=== PATIENT | female | born 1935 | race Caucasian/White ===

== ENCOUNTER 2024-01-15 21:23 | Emergency (ER) | payer MEDICARE, SELFPAY ==
[2024-01-15 21:33] VITALS: BP 149/97; PULSE 82; O2SAT 99
--- NOTE | 2024-01-15 21:33 | DI.RAD.S_ITS ---
PROCEDURE: XR SHOULDER LT MIN 2V INDICATIONS: fall from standing, shoulder pain TECHNIQUE: 3 views of the shoulder were acquired. COMPARISON: [facility], CT, CT CHEST WO CON, 01/15/2024, 21:47. FINDINGS: Bones: No fractures or dislocations. No suspicious bony lesions. Visualized ribs appear intact. Severe degenerative changes at the left glenohumeral joint. Soft tissues: No suspicious soft tissue calcifications. IMPRESSION: No acute bony abnormality. Severe degenerative changes at the left glenohumeral joint. Dictated by: Otcavio Kolb M.D. on 01/15/2024 at 22:16 Approved by: Octavio Kolb M.D. on 01/15/2024 at 22:19
--- NOTE | 2024-01-15 21:33 | DI.CT.S_ITS ---
PROCEDURE: CT CHEST WO CON INDICATIONS: FALL FROM STANDING, ANTERIOR CHEST WALL PAIN TECHNIQUE: Noncontrast 5 mm thick sections acquired from the pulmonary apices to the posterior costophrenic angles. 1 mm lung window, 5 mm thick coronal and sagittal and 7 mm axial MIP reformats were then acquired. For radiation dose reduction, the following was used: automated exposure control, adjustment of mA and/or kV according to patient size. COMPARISON: [facility], CR, XR SHOULDER LT MIN 2V, 01/15/2024, 21:39. FINDINGS: Image quality: Diagnostic. Lower Neck: No enlarged lymph nodes. Thyroid: No thyroid nodules which require sonographic follow up, per consensus guidelines. Axillae: No enlarged lymph nodes. Chest Wall: Contusion at the left upper chest wall/breast, (2/16). Bones: Comminuted fracture of the medial left clavicle, (2/8). T4 compression fracture. Severe bilateral shoulder DJD. Lungs and Pleura: No pneumothorax or pleural effusions. Peripheral reticular thickening. Mild calcification at the right apex. Heart: Heart size is normal. Three-vessel coronary artery calcifications. No pericardial effusion. Thoracic Vessels: The aorta and pulmonary arteries demonstrate normal size. Mediastinum and Laura: No enlarged lymph nodes. Esophagus: No wall thickening. Small hiatal hernia. Upper Abdomen: Liver has a nodular appearance. Diverticulosis. IMPRESSION: 1. Comminuted fracture of the medial left clavicle. 2. Contusion to the left upper breast/chest wall. 3. T4 compression fracture. Age indeterminate. 4. Liver has a somewhat nodular appearance. This raises the possibility of cirrhosis. No free fluid in the upper abdomen. 5. Mild pulmonary interstitial changes. Small hiatal hernia. Dictated by: Octavio Kolb M.D. on 01/15/2024 at 22:20 Approved by: Octavio Kolb M.D. on 01/15/2024 at 22:29
[2024-01-15 21:35] VITALS: BP 149/97; PULSE 87; RESP 18; TEMP 36.1; O2SAT 98; BMI 26.3
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
[2024-01-15 22:04] VITALS: PULSE 80; O2SAT 91
[2024-01-15 22:05] VITALS: BP 133/99; PULSE 79; O2SAT 98
[2024-01-15 22:30] VITALS: PULSE 73; O2SAT 98
[2024-01-15 22:31] VITALS: BP 129/62; PULSE 77; O2SAT 98
[2024-01-15] MEDS: HYDROCODONE/ACET 5/325 TABLET 1 TAB PO (22:31)
== END 2024-01-15 22:53 | disposition home or self-care (01) ==
PROVIDERS: Emergency Provider Emergency Medicine
DX: S42.012A Anterior displaced fracture of sternal end of left clavicle, initial encounter for closed fracture (principal); W18.30XA Fall on same level, unspecified, initial encounter
CPT/HCPCS: 71250; 73030; 99283; 99284

== ENCOUNTER 2024-09-10 17:05 | Emergency (ER) | payer MEDICARE, SELFPAY ==
[2024-09-10 17:10] VITALS: BP 107/61; PULSE 75; RESP 18; TEMP 36.6; O2SAT 97; BMI 27.5
--- NOTE | 2024-09-10 17:13 | DI.RAD.S_ITS ---
PROCEDURE: XR SHOULDER LT MIN 2V INDICATIONS: fall and LEFT arm injury TECHNIQUE: 2 views of the shoulder were acquired. COMPARISON: [facility], CR, XR SHOULDER LT MIN 2V, 01/15/2024, 21:39. FINDINGS AND IMPRESSION: Moderately impacted and displaced proximal humeral fracture involving the head and neck. Background arthrosis of the glenohumeral and acromioclavicular joints. Possible calcific tendinopathy. Dictated by: Jose Meraz M.D. on 09/10/2024 at 17:47 Approved by: Jose Meraz M.D. on 09/10/2024 at 17:48
--- NOTE | 2024-09-10 17:13 | DI.RAD.S_ITS ---
PROCEDURE: XR HUMERUS LT 2V INDICATIONS: fall and LEFT arm injury TECHNIQUE: 2 views of the humerus were acquired. COMPARISON: None. FINDINGS AND IMPRESSION: No acute displaced fracture of the humeral shaft is seen. Shoulder radiograph report separately dictated for proximal humerus fracture. No suspicious soft tissue calcifications. Dictated by: Jose eMraz M.D. on 09/10/2024 at 17:48 Approved by: Jose Meraz M.D. on 09/10/2024 at 17:49
--- NOTE | 2024-09-10 19:33 | PC.NURSE ---
Patient in waiting room, waiting to be brought back to a room. This tech went out to the waiting room to round on the patients and get updated vital signs. At 1927 the patient refused vital signs and wanted to rest. YOLANDA luz
--- NOTE | 2024-09-10 21:23 | PC.NURSE ---
pt to Rm 11 with arm in sling placed at triage, pt c/o pain in left arm after slipping and falling, pt left in position of comfort, daughter at bedside
--- NOTE | 2024-09-10 21:41 | ED.UPPEXIN ---
HPI - Extremity Injury (Upper) General Chief Complaint: Extremity Injury, Upper Stated Complaint: Fall, shoulder injury, no blood thinners Time Seen by Provider: 09/10/24 21:23 Source: patient and family Mode of arrival: Ambulatory History of Present Illness HPI narrative: 88-year-old female history of arthritis presents with a mechanical fall at her daughter's house slipping on tile as she was turning around in her walker now unable to move her shoulder upper extremity. Patient denies headache, dizziness, blurred vision, chest pain, back pain, neck pain, abdominal pain at this time. Other than what is stated 14 point review of system is negative. Related Data Previous Rx's Medication Instructions Recorded tramadol 50 mg tablet 50 mg PO Q8H PRN pain #9 tabs 01/15/24 hydrocodone 5 mg-acetaminophen 325 1 tab PO Q6H PRN pain #20 tabs 09/10/24 mg tablet Allergies Allergy/AdvReac Type Severity Reaction Status Date / Time No Known Drug Allergies Allergy Verified 01/15/24 21:35 Review of Systems Review of Systems ROS Unobtainable: All systems reviewed & are unremarkable except as noted in HPI and below Patient History Smoking Status: Never smoker Exam Narrative Exam Narrative: GENERAL: [88] year old patient appears stated age. Well-developed patient, in mild distress. HEAD: Atraumatic. Normocephalic. EYES: Pupils equal round and reactive. Extraocular motions intact. No scleral icterus. No injection or drainage. ENT: Nose without bleeding, purulent drainage. Throat without erythema, tonsillar hypertrophy or exudate. Airway patent. NECK: Trachea midline. Non tender CARDIOVASCULAR: Regular rate and rhythm without murmurs, gallops, or rubs. RESPIRATORY: Clear to auscultation. Breath sounds equal bilaterally. No wheezes, rales, or rhonchi. GASTROINTESTINAL: Abdomen soft, non-tender, nondistended. EXTREMITIES: L shoulder swelling TTP with dec ROM in all directions, motor/sensory +2 rad pulse cap refill <2secs BACK: Nontender without deformity or crepitance. No flank tenderness. NEURO: AOx3. SKIN: No rash or erythema of visible areas Initial Vital Signs Initial Vital Signs: Vital Signs Temperature 97.9 F 09/10/24 17:10 Pulse Rate 75 09/10/24 17:10 Respiratory Rate 18 09/10/24 17:10 Blood Pressure 107/61 09/10/24 17:10 Pulse Oximetry 97 09/10/24 17:10 Oxygen Delivery Method Room Air 09/10/24 17:10 Course Orders Ordered: ED Orders 09/10/24 17:13 XR humerus LT 2V Stat XR shoulder LT 2+ views Stat Vital Signs Vital signs: Vital Signs - 8 hr 09/10/24 17:10 Temperature 97.9 F Pulse Rate 75 Respiratory Rate 18 Blood Pressure 107/61 Pulse Oximetry 97 Oxygen Delivery Method Room Air MDM - Extremity Injury (Upper) Imaging Data Extremity x-ray #1: Radiologist's Impression: [address] [address] XRay Report Signed Patient: Naina Leone MR#: [id number] : 1935 Acct:[id number] Age/Sex: 88 / F Date of Service: 09/10/24 Loc: ED Accession Number: [id number] Procedure: XR shoulder LT 2+ views Ordering Provider: Santa Gayle D.O. PROCEDURE: XR SHOULDER LT MIN 2V INDICATIONS: fall and LEFT arm injury TECHNIQUE: 2 views of the shoulder were acquired. COMPARISON: [facility], , XR SHOULDER LT MIN 2V, 01/15/2024, 21:39. FINDINGS AND IMPRESSION: Moderately impacted and displaced proximal humeral fracture involving the head and neck. Background arthrosis of the glenohumeral and acromioclavicular joints. Possible calcific tendinopathy. Dictated by: Jose Meraz M.D. on 09/10/2024 at 17:47 Approved by: Jose Meraz M.D. on 09/10/2024 at 17:[address] [address] XRay Report Signed Patient: Naina Leone MR#: [id number] : 1935 Acct:[id number] Age/Sex: 88 / F Date of Service: 09/10/24 Loc: ED Accession Number: [id number] Procedure: XR humerus LT 2V Ordering Provider: Santa Gayle D.O. PROCEDURE: XR HUMERUS LT 2V INDICATIONS: fall and LEFT arm injury TECHNIQUE: 2 views of the humerus were acquired. COMPARISON: None. FINDINGS AND IMPRESSION: No acute displaced fracture of the humeral shaft is seen. Shoulder radiograph report separately dictated for proximal humerus fracture. No suspicious soft tissue calcifications. Dictated by: Jose Meraz M.D. on 09/10/2024 at 17:48 Approved by: Jose Meraz M.D. on 09/10/2024 at 17:49 MDM Narrative Medical decision making narrative: Vital signs nurse triage note medication list previous ER visits and all x-rays reviewed. Moderately impacted and displaced proximal humeral fracture involving the head and neck with background arthrosis of the glenohumeral and acromioclavicular joint. Given [place] here and placed in a sling case discussed with who agreed with care plan and to follow up as outpatient. Differential diagnosis includes fracture dislocation arthritis contusion. Discharge Plan Departure Patient Disposition: Home Clinical Impression: Fracture of humerus Instructions: DI for Shoulder Fracture Activity Restrictions/Additional Instructions: Return with new or worsening symptoms. Take your medicines directed and follow up with Dr. Carmichael orthopedic surgeon. Prescriptions: New hydrocodone-acetaminophen 5-325 mg tablet 1 tab PO Q6H PRN (Reason: pain) Qty: 20 0RF No Action tramadol 50 mg tablet 50 mg PO Q8H PRN (Reason: pain) Qty: 9 0RF Referrals: Umm Carmichael MD [Physician] - Miscellaneous,MD David [Primary Care Provider] - Stand Alone Forms: Patient Portal/API/Survey
[2024-09-10] MEDS: HYDROCODONE/ACET 5/325 TABLET 1 TAB PO (21:54)
[2024-09-10 22:09] VITALS: BP 106/60; PULSE 81; RESP 18; O2SAT 97
== END 2024-09-10 22:10 | disposition home or self-care (01) ==
PROVIDERS: Emergency Provider Family Medicine
DX: S42.292A Other displaced fracture of upper end of left humerus, initial encounter for closed fracture (principal); W01.0XXA Fall on same level from slipping, tripping and stumbling without subsequent striking against object, initial encounter; Y93.01 Activity, walking, marching and hiking; Y92.009 Unspecified place in unspecified non-institutional (private) residence as the place of occurrence of the external cause
CPT/HCPCS: 73030; 73060; 99283